=== PATIENT | male | born 1940 | race Caucasian/White ===

== ENCOUNTER 2022-03-26 08:24 | Day surgery (SDC) | payer MEDICARE, BC ==
[2022-03-26] MEDS ORDERED: Midazolam 1 MG/ML 2 ML SDV IV ONE (08:25)
[2022-03-26] MEDS ORDERED: fentaNYL 100 MCG/2 ML SDV IV ONE (08:25)
[2022-03-26] MEDS ORDERED: Lactated Ringers 1,000 ML IV PRN (08:30)
[2022-03-26] MEDS ORDERED: Sodium Chloride 0.9% 10 ML Syringe FLUSH PRN (08:30)
[2022-03-26] MEDS ORDERED: acetaZOLAMIDE 500 MG Cap.ER PO ONE (10:30)
== END 2022-03-26 11:09 | disposition home or self-care (01) ==
LOC: FB.SDS 08:24
PROVIDERS: ATTEND Ophthalmology
DX: E11.36 Type 2 diabetes mellitus with diabetic cataract (principal); H25.813 Combined forms of age-related cataract, bilateral; H35.3131 Nonexudative age-related macular degeneration, bilateral, early dry stage; H04.123 Dry eye syndrome of bilateral lacrimal glands; H43.813 Vitreous degeneration, bilateral; I10 Essential (primary) hypertension; E78.49 Other hyperlipidemia; I48.92 Unspecified atrial flutter; C61 Malignant neoplasm of prostate; Z96.651 Presence of right artificial knee joint; Z96.641 Presence of right artificial hip joint; Z79.899 Other long term (current) drug therapy; Z79.01 Long term (current) use of anticoagulants
CPT/HCPCS: 00142; A9270-GY; J2250; J3010; V2632

== ENCOUNTER 2022-04-09 08:22 | Day surgery (SDC) | payer MEDICARE, BC ==
[2022-04-09] MEDS ORDERED: Midazolam 1 MG/ML 2 ML SDV IV ONE (08:23)
[2022-04-09] MEDS ORDERED: fentaNYL 100 MCG/2 ML SDV IV ONE (08:23)
[2022-04-09] MEDS ORDERED: Lactated Ringers 1,000 ML IV PRN (08:30)
[2022-04-09] MEDS ORDERED: Sodium Chloride 0.9% 10 ML Syringe FLUSH PRN (08:30)
[2022-04-09] MEDS ORDERED: acetaZOLAMIDE 500 MG Cap.ER PO ONE (10:30)
== END 2022-04-09 10:34 | disposition home or self-care (01) ==
LOC: FB.SDS 08:22
PROVIDERS: ATTEND Ophthalmology
DX: E11.36 Type 2 diabetes mellitus with diabetic cataract (principal); H26.9 Unspecified cataract; I10 Essential (primary) hypertension; E78.49 Other hyperlipidemia; I48.92 Unspecified atrial flutter; K21.9 Gastro-esophageal reflux disease without esophagitis; Z96.651 Presence of right artificial knee joint; Z79.899 Other long term (current) drug therapy; Z79.01 Long term (current) use of anticoagulants; Z98.890 Other specified postprocedural states
CPT/HCPCS: 00142; 82947; A9270-GY; J2250; J3010; J3490; V2632